=== PATIENT | male | born 1970 ===

== ENCOUNTER → 2019-06-18 | Outpatient (CLI) | payer OTHER ==
[2019-06-19 11:12] LABS: Antinuclear Antibody Screen Negative (Negative)
[2019-06-19 14:15] LABS: RA, SEMIQUANTITATIVE 64 IU/ml (<8); Rheumatoid Factor, Serum Positive (Negative)
== END | disposition home or self-care (01) ==
LOC: LAB EV 13:48 → LAB SHORT 13:48
PROVIDERS: General Practice
DX: M13.0 Polyarthritis, unspecified (principal)
CPT/HCPCS: 86038; 86430; 86431

== ENCOUNTER 2024-07-17 04:21 | Day surgery (SDC) | payer BC | END 2024-07-17 23:00 | disposition home or self-care (01) | LOC: WOUND 04:21 | DX: L02.31 Cutaneous abscess of buttock (principal); E11.622 Type 2 diabetes mellitus with other skin ulcer; I10 Essential (primary) hypertension; M06.9 Rheumatoid arthritis, unspecified; F17.210 Nicotine dependence, cigarettes, uncomplicated; L89.329 Pressure ulcer of left buttock, unspecified stage | CPT/HCPCS: G0463 ==

== ENCOUNTER 2024-08-07 00:38 | Day surgery (SDC) | payer BC ==
[2024-08-07] MEDS ORDERED: Lidocaine HCl 4% Cream 5 GM ONE (15:05)
== END 2024-08-07 23:00 | disposition home or self-care (01) ==
LOC: WOUND 00:38
DX: L02.31 Cutaneous abscess of buttock (principal); L89.329 Pressure ulcer of left buttock, unspecified stage; I10 Essential (primary) hypertension; E11.9 Type 2 diabetes mellitus without complications; M06.9 Rheumatoid arthritis, unspecified; F17.210 Nicotine dependence, cigarettes, uncomplicated
CPT/HCPCS: A9270; G0463

== ENCOUNTER 2024-08-13 04:05 | Day surgery (SDC) | payer BC | END 2024-08-13 23:00 | disposition home or self-care (01) | LOC: WOUND 04:05 | DX: E11.622 Type 2 diabetes mellitus with other skin ulcer (principal); L02.31 Cutaneous abscess of buttock; I10 Essential (primary) hypertension; M06.9 Rheumatoid arthritis, unspecified; F17.210 Nicotine dependence, cigarettes, uncomplicated | CPT/HCPCS: G0463 ==

== ENCOUNTER 2024-09-11 04:59 | Day surgery (SDC) | payer BC | END 2024-09-11 23:00 | disposition home or self-care (01) | LOC: WOUND 04:59 | DX: L02.31 Cutaneous abscess of buttock (principal); L89.329 Pressure ulcer of left buttock, unspecified stage; E11.622 Type 2 diabetes mellitus with other skin ulcer; I10 Essential (primary) hypertension; M06.9 Rheumatoid arthritis, unspecified; F17.210 Nicotine dependence, cigarettes, uncomplicated | CPT/HCPCS: G0463 ==

== ENCOUNTER 2024-10-09 01:31 | Day surgery (SDC) | payer BC | END 2024-10-09 23:00 | disposition home or self-care (01) | LOC: WOUND 01:31 | DX: L89.323 Pressure ulcer of left buttock, stage 3 (principal); E11.622 Type 2 diabetes mellitus with other skin ulcer; L02.31 Cutaneous abscess of buttock; I10 Essential (primary) hypertension; M06.9 Rheumatoid arthritis, unspecified; F17.210 Nicotine dependence, cigarettes, uncomplicated | CPT/HCPCS: G0463 ==

== ENCOUNTER 2024-11-13 01:36 | Day surgery (SDC) | payer BC ==
[2024-11-13] MEDS ORDERED: Lidocaine HCl 4% Cream 5 GM ONE (09:33)
== END 2024-11-13 23:00 | disposition home or self-care (01) ==
LOC: WOUND 01:36
DX: E11.622 Type 2 diabetes mellitus with other skin ulcer (principal); L98.412 Non-pressure chronic ulcer of buttock with fat layer exposed; L02.31 Cutaneous abscess of buttock; I10 Essential (primary) hypertension; M06.9 Rheumatoid arthritis, unspecified; F17.210 Nicotine dependence, cigarettes, uncomplicated
CPT/HCPCS: A9270; G0463

== ENCOUNTER 2024-11-23 11:43 | Day surgery (SDC) | payer BC | END 2024-11-23 23:00 | disposition home or self-care (01) | LOC: WOUND 11:43 | DX: E11.622 Type 2 diabetes mellitus with other skin ulcer (principal); L02.31 Cutaneous abscess of buttock; I10 Essential (primary) hypertension; M06.9 Rheumatoid arthritis, unspecified; F17.210 Nicotine dependence, cigarettes, uncomplicated | CPT/HCPCS: G0463 ==

== ENCOUNTER 2025-01-01 03:05 | Day surgery (SDC) | payer BC | END 2025-01-01 23:19 | disposition home or self-care (01) | LOC: WOUND 03:05 | DX: L02.31 Cutaneous abscess of buttock (principal); L89.329 Pressure ulcer of left buttock, unspecified stage; M06.9 Rheumatoid arthritis, unspecified; E11.9 Type 2 diabetes mellitus without complications; I10 Essential (primary) hypertension; F17.210 Nicotine dependence, cigarettes, uncomplicated | CPT/HCPCS: G0463 ==